=== PATIENT | male | born 1990 | race Caucasian/White ===

== ENCOUNTER 2025-05-09 01:41 | Emergency (ER) | payer SELFPAY ==
[2025-05-09] MEDS ORDERED: Lidocaine/Transparent Dressing 1 EACH KIT ONE (02:09)
== END 2025-05-09 02:51 ==
LOC: BURERS 01:41
DX: S01.01XA Laceration without foreign body of scalp, initial encounter (principal); W20.8XXA Other cause of strike by thrown, projected or falling object, initial encounter; Z23 Encounter for immunization
CPT/HCPCS: 12001; 90471; 90715